=== PATIENT | female | born 1985 | race Caucasian/White ===

== ENCOUNTER 2025-05-30 13:29 | Emergency (ER) | payer SELFPAY ==
[2025-05-30] MEDS: Amoxicillin/Clavulanate K 875-125 MG Tab PO ONE (14:24)
== END 2025-05-30 15:00 | disposition home or self-care (01) ==
LOC: JD.ED 13:29
DX: K04.7 Periapical abscess without sinus (principal); Z79.899 Other long term (current) drug therapy
CPT/HCPCS: 41800; 99283; A9270